=== PATIENT | female | born 1930 | race Caucasian/White ===

== ENCOUNTER 2017-04-23 19:09 | Emergency (ER) | payer OTHER, MEDICARE ==
[~2017-04-23] VITALS: Ht 157.5 cm; Wt 59.0 kg
[~2017-04-23 19:09] MED LIST: CEPHALEXIN500 MG PO; LIDODERM 5% PAT1 PAT TOP
[2017-04-23 19:15] VITALS: BP 169/68
[2017-04-23] MEDS ORDERED: KEFLEX750 M1 PO (19:46)
[2017-04-23] MEDS ORDERED: BACTRIM DS TAB1 EACH PO (19:46)
--- NOTE | 2017-04-23 19:47 | ED SKIN/ALLERGY COMPLAINT ---
History of Present Illness General Chief Complaint: Lower Extremity Problems Stated Complaint: RIGHT LEG REDNESS Source: patient, family Exam Limitations: no limitations Vital Signs & Intake/Output Vital Signs & Intake/Output Vital Signs Date Time Temp Pulse Resp B/P B/P Pulse O2 O2 Flow FiO2 Mean Ox Delivery Rate 04/23 1934 Room Air 04/23 1914 98.2 73 20 169/68 95 Room Air Allergies Coded Allergies: NO KNOWN ALLERGIES (09/11/13) Reconcile Medications Cephalexin 500 MG CAP 1 TAB PO TID INFECTION Lidocaine HCl (Lidoderm Patch) 5 % PAT 1 PAT TOP DAILY SHOULDER PAIN may wear up to 12 hours Triage Note: PT FROM HOME WITH C/O RIGHT LOWER LEG SKIN REDDNESS THAT WAS NOTICED YESTERDAY. PT DENIES ANY INJURY /TRAUMA. PT DENIES C/O PAIN/BURNING OR ITCHING. AREA IS RED, SWOLLEN AND WARM TO TOUCH. Triage Nurses Notes Reviewed? yes Onset: Gradual Duration: hour(s): (YESTERDAY), constant, continues in ED Severity: moderate Location: RIGHT MEDIAL ANKLE HPI: Patient presents for evaluation of possible cellulitis. Patient denies any associated fever or cold symptoms or antecedent trauma. She denies history of diabetes. Past History Travel History Traveled to [place] past 21 day No Medical History Any Pertinent Medical History? see below for history Neurological: dementia Cardiovascular: hypertension Surgical History Surgical History: non-contributory Psychosocial History What is your primary language Citizen Of [place] Tobacco Use: Never used Family History Hx Contributory? No Review of Systems Review of Systems Constitutional: Reports: no symptoms. EENTM: Reports: no symptoms. Respiratory: Reports: no symptoms. Cardiovascular: Reports: no symptoms. GI: Reports: no symptoms. Genitourinary: Reports: no symptoms. Musculoskeletal: Reports: no symptoms. Skin: Reports: see HPI. Neurological/Psychological: Reports: no symptoms. Hematologic/Endocrine: Reports: no symptoms. Immunologic/Allergic: Reports: no symptoms. All Other Systems: Reviewed and Negative Physical Exam Physical Exam General Appearance: SEE BELOW Comments: Gen.: Well-nourished, well-developed, no acute respiratory distress. Head: Normocephalic, atraumatic. Eyes: Normal inspection bilaterally Ears: Normal inspection bilaterally Nose: Normal inspection Throat/mouth : Moist mucosa Neck: Supple, full range of motion, no goiter Heart: Regular rate and rhythm Lungs: Quiet respirations Back: Normal range of motion Extremities: Right leg: Induration erythema and mildly violaceous coloration of the medial aspect of the right ankle. There is no tenderness associated with the area of rash. There is no apparent trauma. Inspection of the left leg reveals no similar erythema. Neurologic: Cranial nerves grossly intact, speech is clear Skin: warm and dry Psychiatric: Calm, cooperative, no apparent delusions or hallucinations Progress Differential Diagnosis: ABSCESS, CELLULITIS, lYME DISEASE, STASIS DERMATITIS Plan of Care: SEE D/C INSTRUCTIONS Departure Departure Disposition: HOME OR SELF CARE Condition: Stable Clinical Impression Primary Impression: Cellulitis of leg Qualifiers: Laterality: right Qualified Code: L03.115 - Cellulitis of right lower limb Referrals: Giselle VÁSQUEZ,Tamia (PCP/Family) Additional Instructions: Amoxicillin and Bactrim as prescribed. [id number] Tylenol as needed for fever or pain. Follow-up with your primary care physician in 48-72 hours for reevaluation. Return if any concerns or sudden worsening. Thank you for choosing the [facility] for your care. It was a pleasure to serve you today. Frankie Andrews M.D. [facility] Departure Forms: Customer Survey General Discharge Information Prescriptions: Current Visit Scripts Sulfamethoxazole/Trimethoprim (Bactrim Ds Tablet) 1 TAB PO BID #20 TAB Cephalexin (Keflex) 1 CAP PO BID #20 CAP
== END 2017-04-23 19:51 ==
LOC: ERH 19:09
DX: L03.115 Cellulitis of right lower limb (principal)